=== PATIENT | female | born 1980 | race Caucasian/White ===

== ENCOUNTER → 2018-01-22 | Outpatient (CLI) | payer OTHER | LOC: MHCPAIN 08:39 | DX: G89.29 Other chronic pain (principal); M53.3 Sacrococcygeal disorders, not elsewhere classified; M79.1 Myalgia | CPT/HCPCS: G0463 ==

== ENCOUNTER → 2018-02-01 | Outpatient (CLI) | payer OTHER | LOC: MHCPAIN 09:34 | DX: G57.00 Lesion of sciatic nerve, unspecified lower limb (principal) | CPT/HCPCS: J1040 ==

== ENCOUNTER → 2018-03-05 | Outpatient (CLI) | payer OTHER | LOC: MHCPAIN 07:59 | DX: G89.29 Other chronic pain (principal); M47.817 Spondylosis without myelopathy or radiculopathy, lumbosacral region; M79.10 Myalgia, unspecified site | CPT/HCPCS: G0463 ==